=== PATIENT | male | born 1945 | race Caucasian/White ===

== ENCOUNTER 2017-07-20 07:24 | Day surgery (SDC) | payer MEDICARE, OTHER ==
[~2017-07-20 07:24] MED LIST: Lactated Ringers 1,000 ML IV SCH
[2017-07-20] MEDS ORDERED: Lidocaine 4% 5 ML Amp ONE (08:53)
[2017-07-20] MEDS ORDERED: fentaNYL 100 MCG/2 ML SDV ONE (08:53)
[2017-07-20] MEDS ORDERED: Propofol 200 MG/20 ML SDV ONE (08:53)
--- NOTE | 2017-07-20 10:58 | OR ---
PREOPERATIVE DIAGNOSIS: Dysphagia. POSTOPERATIVE DIAGNOSES: 1. Gastroesophageal stenosis with gastroesophageal reflux disease. 2. Hiatal hernia. 3. Antral ulcers. PROCEDURE PROPOSED: Upper gastrointestinal panendoscopy. PROCEDURE DONE: 1. Upper gastrointestinal panendoscopy with antral biopsies. 2. Endoscopic balloon esophageal dilatation. INDICATIONS: This is a 72-year-old gentleman, who presents with about a 6-month history of increasing dysphagia with meat and bread sticking and requiring some regurgitation. He has never been gastroscoped before. He does take omeprazole on a regular basis and has been doing that for the last 5 to 6 years. TECHNIQUE: The patient was brought to the endoscopy suite, placed in left lateral decubitus position. He was sedated per [employer] with propofol. The flexible videogastroscope was then passed transorally and under visualization advanced well into the duodenum. In the duodenum, the duodenal bulb was unremarkable. Right in the antral pre-pyloric region, there were several small ulcers with inflammation of the mucosa surrounding the ulcers. Multiple biopsies were taken of these areas. The body of the stomach, otherwise, looked quite healthy, but he did have at least 4 to 5 cm hiatal hernia, and the GE junction did reveal some stenosis with some mild active inflammation without evidence of May's esophagus. Remainder of the esophagus otherwise appeared normal. I felt that balloon dilatation was indicated and therefore under endoscopic guidance, an 18 to 20 mm balloon was inserted across the GE junction and inflated initially to 18 mm, followed by 19 and then eventually 20 mm. The balloon was deflated and the area inspected. There was some fracturing of the stenosis with some mild bleeding. No evidence of any worrisome findings. After the dilatation, the scope and balloon were then removed. FINAL IMPRESSION: 1. Esophageal stenosis dilated to 20 mm. 2. Hiatal hernia with mild gastroesophageal reflux disease. 3. Antral ulcers, biopsies pending. PLAN: I feel that we should change his medicine to Protonix 40 mg daily, and I am going to add Carafate for 1 month. He was told that there is a chance of recurrence of the stenosis and potential need for future dilatations. SCM: 07/20/2017 09:37:44 MODL: 07/20/2017 10:07:26 /[id number]
== END 2017-07-20 10:24 | disposition home or self-care (01) ==
LOC: VM.SDS 07:24
PROVIDERS: ATTEND Surgery
DX: K22.2 Esophageal obstruction (principal); K31.9 Disease of stomach and duodenum, unspecified; K44.9 Diaphragmatic hernia without obstruction or gangrene; K21.9 Gastro-esophageal reflux disease without esophagitis; K25.9 Gastric ulcer, unspecified as acute or chronic, without hemorrhage or perforation; I10 Essential (primary) hypertension; J44.9 Chronic obstructive pulmonary disease, unspecified; E11.9 Type 2 diabetes mellitus without complications; F17.210 Nicotine dependence, cigarettes, uncomplicated; E66.01 Morbid (severe) obesity due to excess calories; Z68.39 Body mass index [BMI] 39.0-39.9, adult; Z79.84 Long term (current) use of oral hypoglycemic drugs; Z79.82 Long term (current) use of aspirin; Z88.0 Allergy status to penicillin; Z91.040 Latex allergy status; Z88.8 Allergy status to other drugs, medicaments and biological substances; E78.00 Pure hypercholesterolemia, unspecified
CPT/HCPCS: 00731; 82962; 88305; J2704; J3010; J7120

== ENCOUNTER 2019-07-03 12:55 | Emergency (ER) | payer MEDICARE, OTHER ==
--- NOTE | 2019-07-03 13:34 | CT ---
[id number] CT/CT Head Stroke Protocol EXAM: NONCONTRAST HEAD CT INDICATION: DOUBLE VISION, STROKE CODE. COMPARISON: None. DISCUSSION: There is a dense 25 x 7 mm dense extra-axial mass along the convexity of the right frontal lobe, favor meningioma. Brain MRI with and without contrast could confirm. Mild generalized atrophy. Mild to moderate scattered white matter hypoattenuation is nonspecific, but generally ascribed to chronic small vessel ischemia. No mass effect, midline shift, hydrocephalus or acute hemorrhage is identified. No acute territorial infarct is identified. Fluid and mucosal thickening in the bilateral sphenoid sinuses compatible with acute sinusitis. Mild mucosal thickening scattered throughout the ethmoid and sphenoid sinuses. IMPRESSION: 1. Acute bilateral sphenoid sinusitis. 2. A hyperdense 25 x 7 mm extra-axial mass along the convexity of the right frontal lobe likely represents a meningioma. Brain MRI with and without contrast could provide further evaluation. 3. No acute infarct or hemorrhage is identified. Julio Cesar Carrasco MD 07/03/19 [id number] Thank you for allowing us to participate in the care of your patient.
[2019-07-03 13:55] LABS: ANION GAP 14.3 mmol/L (10-20); CHLORIDE,CL 106 mmol/L (98-107); SODIUM,NA 142 mmol/L (136-145)
--- NOTE | 2019-07-03 13:57 | EDM.PDOC ---
ED HPI GENERAL MEDICAL PROBLEM - General Time Seen by Provider: 07/03/19 12:55 Source of Information: Reports: Patient History Limitations: Reports: No Limitations - History of Present Illness INITIAL COMMENTS - FREE TEXT/NARRATIVE: Pt. presents to ER with complaints of double vision. 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 He states that he was having trouble driving, called his , who subsequently brought the patient to ER. Pt. states that the diplopia, and improves when he closes each of his eyes. He states that the images align laterally. Pt. denies any head trauma. He has a history of previous R anterior cervical artery embolic CVA according to his [place] Chart. He states that this happened in [place] at [facility]. He is not sure what intervention was done, whether the patient received TPA or other intervention, but apparently the pt. has not had any deficits. Pt. has a history of bilateral carotid artery stenosis, approx. 50% noted on CTA in 2019. Pt. also has a meningioma in the R frontal lobe which they have been monitoring with MRI. Pt. denies any chest pain, shortness of breath, palpitations, numbness/tingling in extremities, difficulty with speech or ambulation, or vision loss; his only complaint today is that of increased diplopia. Denies any fever, chills, exposure to anyone with these symptoms, or travel. Onset: Today Onset Date: 07/03/19 Duration: Getting Worse Associated Symptoms: Reports: Other (diplopia) - Related Data Allergies Allergy/AdvReac Type Severity Reaction Status Date / Time latex Allergy Other Verified 07/20/17 07:53 Penicillins Allergy Hives Verified 07/20/17 07:53 lovastatin AdvReac Muscle Verified 05/24/18 13:22 Aches Home Meds: Home Meds Aspirin [Halfprin] 81 mg PO DAILY 07/15/17 [History] Fluticasone Propion/Salmeterol [Advair 250-50 Diskus] 1 puff INH BID 07/15/17 [ History] Glimepiride 2 mg PO BIDMEALS 07/15/17 [History] Metoprolol Succinate [Toprol Xl] 50 mg PO BID 07/15/17 [History] hydroCHLOROthiazide [Hydrochlorothiazide] 25 mg PO DAILY 07/15/17 [History] metFORMIN HCl [Glucophage] 1,000 mg PO BID 07/15/17 [History] Albuterol [Proventil HFA] 1 - 2 puff INH Q6H PRN 07/04/18 [History] Clopidogrel [Plavix] 75 mg PO DAILY 07/04/18 [History] Insulin Glarg,Human.Rec.Analog [Lantus] 28 unit SUBCUT DAILY 07/04/18 [History] Losartan [Cozaar] 100 mg PO DAILY 07/04/18 [History] Nitroglycerin [Nitrostat] 0.4 mg SL ASDIRECTED PRN 07/04/18 [History] Pantoprazole [ProTONIX] 40 mg PO BIDAC 07/04/18 [History] Sertraline [Zoloft] 25 mg PO DAILY 07/04/18 [History] atorvaSTATin Calcium [Lipitor] 40 mg PO DAILY 07/04/18 [History] Past Medical History HEENT History: Reports: None Other HEENT History: dysphagia Cardiovascular History: Reports: High Cholesterol, Hypertension Respiratory History: Reports: COPD Gastrointestinal History: Reports: GERD Genitourinary History: Reports: BPH Musculoskeletal History: Reports: Osteoarthritis Neurological History: Reports: CVA Psychiatric History: Reports: None Other Psychiatric History: obesity Endocrine/Metabolic History: Reports: Diabetes, Type II Other Hematologic History: thrombocytopenia. elevated PSA (prostate specific antigen) Immunologic History: Reports: None Oncologic (Cancer) History: Reports: None Dermatologic History: Reports: None - Past Surgical History Head Surgeries/Procedures: Reports: None HEENT Surgical History: Reports: Cataract Surgery Cardiovascular Surgical History: Reports: None GI Surgical History: Reports: Appendectomy Male Surgical History: Reports: Nephrectomy, Prostatectomy Musculoskeletal Surgical History: Reports: Other (See Below) Other Musculoskeletal Surgeries/Procedures:: rt foot sx ED ROS GENERAL - Review of Systems Review Of Systems: See Below Constitutional: Reports: No Symptoms HEENT: Reports: Vision Change Respiratory: Reports: No Symptoms Cardiovascular: Reports: No Symptoms Endocrine: Reports: No Symptoms GI/Abdominal: Reports: No Symptoms : Reports: No Symptoms Musculoskeletal: Reports: No Symptoms Skin: Reports: No Symptoms Neurological: Denies: Confusion, Dizziness, Headache, Numbness, Paresthesia, Seizure, Syncope, Tingling, Tremors, Trouble Speaking, Difficulty Walking, Weakness, Change in Speech, Gait Disturbance Psychiatric: Reports: No Symptoms Hematologic/Lymphatic: Reports: No Symptoms Immunologic: Reports: No Symptoms ED EXAM, GENERAL - Physical Exam Exam: See Below Exam Limited By: No Limitations General Appearance: Alert, WD/WN, No Apparent Distress Eye Exam: Bilateral Eye: EOMI, PERRL Throat/Mouth: Normal Inspection Head: Atraumatic, Normocephalic Neck: Normal Inspection, Supple, Non-Tender, Full Range of Motion Respiratory/Chest: No Respiratory Distress, Lungs Clear, Normal Breath Sounds, No Accessory Muscle Use, Chest Non-Tender Cardiovascular: Normal Peripheral Pulses, Regular Rate, Rhythm, No Edema, No Gallop, No JVD, No Murmur, No Rub Peripheral Pulses: 4+: Radial (L) GI/Abdominal: Normal Bowel Sounds, Soft, Non-Tender, No Distention, No Mass (Male) Exam: Deferred Rectal (Males) Exam: Deferred Back Exam: Normal Inspection, Full Range of Motion Extremities: Normal Inspection, Normal Range of Motion, Non-Tender, No Pedal Edema, Normal Capillary Refill Neurological: Alert, Oriented, CN II-XII Intact, Normal Cognition, Normal Gait, Normal Reflexes, No Motor/Sensory Deficits, Other (NIH stroke score is 0.) Psychiatric: Normal Affect, Normal Mood Skin Exam: Warm, Dry, Intact, Normal Color, No Rash EKG INTERPRETATION Rhythm: NSR [place]: Normal P-Wave: Present QRS: Normal ST-T: Normal QT: Normal Course - Orders/Labs/Meds Orders: Active Orders 24 hr Category Date Time Status Blood Glucose Check, Bedside [RC] ONETIME Care 07/03/19 13:03 Active EKG Documentation Completion [RC] STAT Care 07/03/19 13:02 Active Blood Alcohol [ETHANOL BLOOD MEDICAL] [CHEM] Stat Lab 07/03/19 13:18 Received COMPREHENSIVE METABOLIC PN,CMP [CHEM] Stat Lab 07/03/19 13:18 Received CRP [C-REACTIVE PROTEIN] [CHEM] Stat Lab 07/03/19 13:18 Received MAGNESIUM [CHEM] Stat Lab 07/03/19 13:18 Received TSH ULTRASENSITIVE [CHEM] Stat Lab 07/03/19 13:18 Received UA RFX YEFRI AND CULT IF INDIC [URIN] Stat Lab 07/03/19 13:03 Ordered Labs: Laboratory Tests 05/26/20 05/26/20 05/26/20 Range/Units 13:02 13:18 13:18 WBC 9.2 (4.0-10.0) x10^3/uL RBC 4.53 (4.5-6.0) x10^6/uL Hgb 12.8 L (14.0-18.0) g/dL Hct 39.2 L (40.0-52.0) % MCV 86.5 (78.0-93.0) fL MCH 28.3 (26.0-32.0) pg MCHC 32.7 (32.0-36.0) g/dL RDW Coeff of Kirstin 14.2 (10.0-15.0) % Plt Count 147 (130-400) x10^3/uL Neut % (Auto) 68.9 (50.0-80.0) % Lymph % (Auto) 17.7 L (25.0-50.0) % [place] % (Auto) 8.4 (2.0-11.0) % Eos % (Auto) 4.7 H (0.0-4.0) % Baso % (Auto) 0.3 (0.2-1.2) % PT 9.7 (9.5-12.3) SEC INR 0.9 L (2.0-3.5) POC Glucose 105 (74-106) mg/dL POC Troponin I (0.00-0.08) ng/mL 07/03/19 Range/Units 13:21 WBC (4.0-10.0) x10^3/uL RBC (4.5-6.0) x10^6/uL Hgb (14.0-18.0) g/dL Hct (40.0-52.0) % MCV (78.0-93.0) fL MCH (26.0-32.0) pg MCHC (32.0-36.0) g/dL RDW Coeff of Kirstin (10.0-15.0) % Plt Count (130-400) x10^3/uL Neut % (Auto) (50.0-80.0) % Lymph % (Auto) (25.0-50.0) % [place] % (Auto) (2.0-11.0) % Eos % (Auto) (0.0-4.0) % Baso % (Auto) (0.2-1.2) % PT (9.5-12.3) SEC INR (2.0-3.5) POC Glucose (74-106) mg/dL POC Troponin I 0.07 (0.00-0.08) ng/mL - Radiology Interpretation Free Text/Narrative:: CT head without contrast does not reveal any acute hemorrhage of hypodensity. Meningioma noted as previously discussed. Departure - Departure Time of Disposition: 14:21 Disposition: DC/[facility]fer to [facility] Clinical Impression: Diplopia - Discharge Information Referrals: Maxim Pak MD [Primary Care Provider] - - Problem List Review Problem List Initiated/Reviewed/Updated: Yes - My Orders Last 24 Hours: My Active Orders 07/03/19 13:02 EKG Documentation Completion [RC] STAT 07/03/19 13:03 Blood Glucose Check, Bedside [RC] ONETIME UA RFX YEFRI AND CULT IF INDIC [URIN] Stat 07/03/19 13:18 Blood Alcohol [ETHANOL BLOOD MEDICAL] [CHEM] Stat COMPREHENSIVE METABOLIC PN,CMP [CHEM] Stat CRP [C-REACTIVE PROTEIN] [CHEM] Stat MAGNESIUM [CHEM] Stat TSH ULTRASENSITIVE [CHEM] Stat - Assessment/Plan Last 24 Hours: My Active Orders 07/03/19 13:02 EKG Documentation Completion [RC] STAT 07/03/19 13:03 Blood Glucose Check, Bedside [RC] ONETIME UA RFX YEFRI AND CULT IF INDIC [URIN] Stat 07/03/19 13:18 Blood Alcohol [ETHANOL BLOOD MEDICAL] [CHEM] Stat COMPREHENSIVE METABOLIC PN,CMP [CHEM] Stat CRP [C-REACTIVE PROTEIN] [CHEM] Stat MAGNESIUM [CHEM] Stat TSH ULTRASENSITIVE [CHEM] Stat Plan: Pt. will be transported to [facility] for MRA and echocardiogram. I discussed case with Dr. Galarza. He is not a candidate for TPA given his history meningioma. He is a code 1. He will be transported via [facility] ground ambulance.
== END 2019-07-03 15:49 | disposition short-term general hospital (02) ==
LOC: VM.ED 12:55
DX: H53.2 Diplopia (principal); E78.00 Pure hypercholesterolemia, unspecified; I10 Essential (primary) hypertension; J44.9 Chronic obstructive pulmonary disease, unspecified; K21.9 Gastro-esophageal reflux disease without esophagitis; M19.90 Unspecified osteoarthritis, unspecified site; E11.9 Type 2 diabetes mellitus without complications; Z86.73 Personal history of transient ischemic attack (TIA), and cerebral infarction without residual deficits; Z88.0 Allergy status to penicillin; Z88.8 Allergy status to other drugs, medicaments and biological substances; Z79.4 Long term (current) use of insulin; Z79.899 Other long term (current) drug therapy; Z79.02 Long term (current) use of antithrombotics/antiplatelets; Z79.82 Long term (current) use of aspirin; Z91.040 Latex allergy status
CPT/HCPCS: 70450; 80053; 80307; 81003; 82962; 83735; 84443; 84484; 85025; 85610; 86140; 93005; 93010; 99284-GF; 99285-25